=== PATIENT | female | born 2000 | race American Indian/Alaskan Native ===

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

== ENCOUNTER 2022-04-03 16:55 | Inpatient (IN) | payer MEDICAID, OTHER ==
[2022-04-03 20:21] LABS: Mucus,Urine FEW /HPF
[2022-04-03 20:28] LABS: Color,Urine Straw (Yellow)
[2022-04-03 20:29] LABS: Bilirubin,Urine Negative (Negative); Blood,Urine Negative (Negative); Protein,Urine <30 mg dL mg/dL (Negative); Urobilinogen,Urine < 2.0 mg/dL (<2.0)
[2022-04-03 20:50] LABS: Mean Corpuscular HGB Conc 27 % (30-34); Platelet Count 715 K/mm3 (140-440)
[2022-04-03 20:51] LABS: Hematocrit 22.4 % (30.3-42.9); Hemoglobin 6.1 gm/dl (10.1-14.3); Mean Corpuscular Volume 61 fl (79-97); Red Cell Distribution Width 35.2 % (13.2-15.2)
[2022-04-03 21:12] LABS: Alanine Aminotransferase 8 units/L (7-56); Albumin 4.8 g/dL (3.9-5); Blood Urea Nitrogen 9 mg/dL (7-17); Calcium 8.9 mg/dL (8.4-10.2); Hemolysis Index 4
[2022-04-03 21:13] LABS: BUN/Creatinine Ratio 18
[2022-04-03 21:57] LABS: Eosinophils % (Manual) 0 % (0.0-4.3); Total Cells Counted 100
[2022-04-03 21:58] LABS: Anisocytosis 3+; Hypochromasia 3+; Poikilocytosis 2+
[2022-04-03 21:59] LABS: Ovalocytes Few; Platelet Estimate Consistent w Auto; Tear Drop Cells 1+
[2022-04-04] MEDS ORDERED: SODIUM CHLORIDE 0.9% 500 ML 500 ML IV ONE (02:54)
--- NOTE | 2022-04-04 02:54 | XRay Report ---
CHEST 2 VIEWS INDICATION / CLINICAL INFORMATION: cp. COMPARISON: None available. FINDINGS: SUPPORT DEVICES: None. HEART / MEDIASTINUM: Heart size and mediastinal contour appear within normal limits. LUNGS / PLEURA: No significant pulmonary or pleural abnormality. No pneumothorax. BONES: No significant osseous abnormality. ADDITIONAL FINDINGS: No significant additional findings. IMPRESSION: 1. No active cardiopulmonary disease. Signer Name: Kd Mcclellan II, MD Signed: 04/04/2022 2:49 AM Workstation Name: [id number]
--- NOTE | 2022-04-04 03:09 | Emergency Department Report ---
ED General Adult HPI - General Chief complaint: Chest Pain Stated complaint: CHEST PAIN/SWOLLEN TONSILS Time Seen by Provider: 04/04/22 02:19 Source: patient Mode of arrival: Ambulatory Limitations: No Limitations - History of Present Illness Initial comments: 23-year-old obese F Micronesian female with past medical history of anemia since childhood of unknown etiology presents emergency department complaining of a possible exacerbation of anemia versus pharyngitis. Having some increased fatigue as of late in conjunction with occasional chest discomfort which spontaneously resolved over the last few days. Reports no chest pain palpitations -: Gradual Radiation: non-radiation Quality: dull Consistency: constant Improves with: none Worsens with: none Associated Symptoms: chest pain, malaise. denies: headaches, weakness Treatments Prior to Arrival: none - Related Data Previous Rx's Medication Instructions Recorded Last Taken Type Ferrous Sulfate [Feosol 325 MG tab] 325 mg PO BID #60 tablet 10/23/18 Unknown Rx Allergies Allergy/AdvReac Type Severity Reaction Status Date / Time No Known Allergies Allergy Unverified 10/22/18 19:45 ED Review of Systems ROS: Stated complaint: CHEST PAIN/SWOLLEN TONSILS Other details as noted in HPI Comment: All other systems reviewed and negative ED Past Medical Hx - Past Medical History Hx Hypertension: No Hx Heart Attack/AMI: No Hx Congestive Heart Failure: No Hx Deep Vein Thrombosis: No Hx Pulmonary Embolism: No Hx Headaches / Migraines: No Hx Seizures: No Hx Asthma: No Hx COPD: No Hx Tuberculosis: No Hx Dementia: No Hx HIV: No Additional medical history: Anemia, Heavy Menses, - Surgical History Hx Coronary Stent: No Hx Pacemaker: No Hx Internal Defibrillator: No - Social History Smoking Status: Never Smoker - Medications Home Medications: Home Medications Medication Instructions Recorded Confirmed Last Taken Type Ferrous Sulfate [Feosol 325 MG tab] 325 mg PO BID #60 tablet 10/23/18 Unknown R x ED Physical Exam - General Limitations: No Limitations General appearance: alert, in no apparent distress - Head Head exam: Present: atraumatic, normocephalic - Eye Eye exam: Present: normal appearance, PERRL, EOMI Pupils: Present: normal accommodation - ENT ENT exam: Present: normal exam, mucous membranes moist, TM's normal bilaterally, other (Hypertrophic tonsils however airways patent no exudate is present no lymphadenopathy is appreciated. No drooling normal voice) - Neck Neck exam: Present: normal inspection, full ROM - Respiratory Respiratory exam: Present: normal lung sounds bilaterally. Absent: respiratory distress, wheezes, rales, chest wall tenderness, decreased breath sounds - Cardiovascular Cardiovascular Exam: Present: regular rate, normal rhythm. Absent: systolic murmur, diastolic murmur, rubs, gallop - GI/Abdominal GI/Abdominal exam: Present: soft, normal bowel sounds - Extremities Exam Extremities exam: Present: normal inspection - Back Exam Back exam: Present: normal inspection - Neurological Exam Neurological exam: Present: alert, oriented X3 - Psychiatric Psychiatric exam: Present: normal affect, normal mood - Skin Skin exam: Present: warm, dry, intact, normal color. Absent: rash ED Course Vital Signs 04/03/22 19:07 Temperature 98.1 F Pulse Rate 83 Respiratory 18 Rate Blood Pressure 136/75 O2 Sat by Pulse 100 Oximetry ED Medical Decision Making - Lab Data Result diagrams: 04/03/22 20:23 04/03/22 20:23 - EKG Data When compared to previous EKG there are: no significant change - Radiology Data Radiology results: report reviewed [address] [address] XRay Report Signed Patient: VALENTINA BRICEÑO MR#: [id number] : 2000 Acct:[id number] Age/Sex: 21 / F ADM Date: 04/03/22 Loc: ED Attending Dr: Ordering Physician: MICHELLE BLAKE Date of Service: 04/04/22 Procedure(s): XR chest routine 2V Accession Number(s): [id number] cc: MICHELLE BLAKE Fluoro Time In Minutes: CHEST 2 VIEWS INDICATION / CLINICAL INFORMATION: cp. COMPARISON: None available. FINDINGS: SUPPORT DEVICES: None. HEART / MEDIASTINUM: Heart size and mediastinal contour appear within normal limits. LUNGS / PLEURA: No significant pulmonary or pleural abnormality. No pneumothorax. BONES: No significant osseous abnormality. ADDITIONAL FINDINGS: No significant additional findings. IMPRESSION: 1. No active cardiopulmonary disease. Signer Name: Milena Mcclellan II, MD Signed: 04/04/2022 2:49 AM Workstation Name: [id number] Transcribed By: BIPIN Dictated By: MILENA MCCLELLAN II, MD Electronically Authenticated By: MILENA MCCLELLAN II, MD Signed Date/Time: 04/04/22248 DD/ 8 TD/TT: - Medical Decision Making 21-year-old obese female with a history of anemia presents emerged department complaining of episodes of fatigue and various episodes of chest discomfort after fluctuates of the nature. Upon investigation and physical examination did reveal hemoglobin of 6.1 in conjunction with the platelets of 715 for reasons unknown. Case was discussed with the hospitalist and attending both agreed and need to admit and type cross and transfuse. I will replace the type cross and transfuse 2 units of packed red blood cells after discussion with the hospitalist. This patient presents with chest pain that is very unlikely angina or acute coronary syndrome. The emergency department evaluation has not identified any cause for suspicion that this chest pain has a cardiac etiology. Based on their history, EKG (which showed no evidence of ischemia or infarction) and imaging, in addition to the patient's physical exam, I see no evidence at this time for a malignant etiology for the patient's chest pain. There is no acute evidence for pulmonary embolus, acute myocardial infarction, pneumothorax, Boerhaeve syndrome, cardiac tamponade, thoracic artery dissection, or any other emergent cardiac, pulmonary or aortic pathology. Given the low pre-test probability for cardiac etiology of chest pain and the absence of any sign of ischemia or infarction, discharge for outpatient follow-up and further evaluation is reasonable. I have explained to the patient that even though a cardiac problem is very unlikely, follow-up and further testing is required to reduce further the already small uncertainty that exists. Other life-threatening diagnoses have been considered. The patient understands the need to return immediately if their symptoms worsen or they develop any new symptoms, and not to engage in any significant exertional activity until follow-up is obtained. Critical care attestation.: If time is entered above; I have spent that time in minutes in the direct care of this critically ill patient, excluding procedure time. ED Disposition Clinical Impression: Anemia, Chest pain, Sore throat Disposition: ADMITTED INPATIENT Is pt being admited?: Yes Does the pt Need Aspirin: No Condition: Stable Instructions: Nonspecific Chest Pain, Adult
[2022-04-04] MEDS ORDERED: MORPHINE 4 MG/1 ML INJ IV PRN (05:10)
[2022-04-04] MEDS ORDERED: MORPHINE 2 MG/1 ML INJ IV PRN (05:10)
[2022-04-04] MEDS ORDERED: ACETAMINOPHEN 325 MG TAB PO PRN (05:10)
[2022-04-04] MEDS ORDERED: ONDANSETRON 4 MG/2 ML INJ IV PRN (05:10)
[2022-04-04] MEDS ORDERED: ALBUTEROL 2.5 MG/3 ML NEBU IH PRN (05:10)
--- NOTE | 2022-04-04 05:16 | History and Physical Report ---
History of Present Illness Date of examination: 04/04/22 Date of admission: 04/04/22 Chief complaint: Anemia Chest pain History of present illness: 23-year-old obese F Indian female with past medical history of anemia since childhood of unknown etiology presents emergency department complaining of a possible exacerbation of anemia versus pharyngitis. Having some increased fatigue as of late in conjunction with occasional chest discomfort which spontaneously resolved over the last few days. Reports no chest pain palpitations In the emergency room patient is found to have a hemoglobin of 6.1 and hematocrit 22.4 so we are going to admit the patient we are going to give 2 unit of packed red blood cells Past History Past Medical History: anemia, other (Heavy menses) Past Surgical History: No surgical history Social history: no significant social history Family history: hypertension Medications and Allergies Allergies Allergy/AdvReac Type Severity Reaction Status Date / Time No Known Allergies Allergy Unverified 10/22/18 19:45 Home Medications Medication Instructions Recorded Confirmed Last Taken Type Ferrous Sulfate [Feosol 325 MG tab] 325 mg PO BID #60 tablet 10/23/18 Unknown Rx Active Meds: Active Medications Acetaminophen (Acetaminophen 325 Mg Tab) 650 mg PO Q4H PRN PRN Reason: Pain MILD(1-3)/Fever >100.5/COOPER Albuterol (Albuterol 2.5 Mg/3 Ml Nebu) 2.5 mg IH Q3HRT PRN PRN Reason: Shortness Of Breath Albuterol/Ipratropium (Ipratropium/Albuterol Sulfate 3 Ml Ampul.Neb) 1 ampul IH Q6HRT ARUN Ondansetron HCl (Ondansetron 4 Mg/2 Ml Inj) 4 mg IV Q8H PRN PRN Reason: Nausea And Vomiting Sodium Chloride (Sodium Chloride 0.9% 10 Ml Flush Syringe) 10 ml IV BID ARUN Sodium Chloride (Sodium Chloride 0.9% 10 Ml Flush Syringe) 10 ml IV PRN PRN PRN Reason: LINE FLUSH Review of Systems All systems: negative Constitutional: fatigue, weakness, malaise, other (Chest pain, swollen tonsils) Exam - Constitutional Vitals: Temp Pulse Resp BP Pulse Ox 98.2 F 75 16 109/41 100 04/04/22 04:56 04/04/22 04:56 04/04/22 04:56 04/04/22 04:56 04/04/22 04:56 General appearance: Present: no acute distress, well-nourished - EENT Eyes: Present: PERRL ENT: hearing intact, clear oral mucosa - Neck Neck: Present: supple, normal ROM - Respiratory Respiratory effort: normal Respiratory: bilateral: CTA - Cardiovascular Heart Sounds: Present: S1 & S2. Absent: rub, click - Extremities Extremities: pulses symmetrical, No edema Peripheral Pulses: within normal limits - Abdominal General gastrointestinal: Present: soft, non-tender, non-distended, normal bowel sounds Female genitourinary: Present: normal - Integumentary Integumentary: Present: clear, warm, dry - Musculoskeletal Musculoskeletal: gait normal, strength equal bilaterally - Psychiatric Psychiatric: appropriate mood/affect, intact judgment & insight - Neurologic Neurologic: CNII-XII intact, moves all extremities Results - Labs CBC & Chem 7: 04/03/22 20:23 04/03/22 20:23 Labs: Laboratory Last Values WBC 6.5 K/mm3 (4.5-11.0) 04/03/22 20: RBC 3.70 M/mm3 (3.65-5.03) 04/03/22 20:23 Hgb 6.1 gm/dl (10.1-14.3) L 04/03/22 20:23 Hct 22.4 % (30.3-42.9) L 04/03/22 20:23 MCV 61 fl (79-97) L 04/03/22 20:23 MCH 17 pg (28-32) L 04/03/22 20:23 MCHC 27 % (30-34) L 04/03/22 20:23 RDW 35.2 % (13.2-15.2) H 04/03/22 20:23 Plt Count 715 K/mm3 (140-440) H 04/03/22 20:23 Add Manual Diff Complete 04/03/22 20:23 Total Counted 100 04/03/22 20:23 Seg Neuts % (Manual) 65.0 % (40.0-70.0) 04/03/22 20:23 Band Neutrophils % 0 % 04/03/22 20:23 Lymphocytes % (Manual) 31.0 % (13.4-35.0) 04/03/22 20:23 Reactive Lymphs % (Man) 0 % 04/03/22 20:23 Monocytes % (Manual) 1.0 % (0.0-7.3) 04/03/22 20:23 Eosinophils % (Manual) 0 % (0.0-4.3) 04/03/22 20:23 Basophils % (Manual) 3.0 % (0.0-1.8) H 04/03/22 20:23 Metamyelocytes % 0 % 04/03/22 20:23 Myelocytes % 0 % 04/03/22 20:23 Promyelocytes % 0 % 04/03/22 20:23 Blast Cells % 0 % 04/03/22 20:23 Nucleated RBC % 1.0 % (0.0-0.9) H 04/03/22 20:23 Seg Neutrophils # Man 4.2 K/mm3 (1.8-7.7) 04/03/22 20:23 Band Neutrophils # 0.0 K/mm3 04/03/22 20:23 Lymphocytes # (Manual) 2.0 K/mm3 (1.2-5.4) 04/03/22 20:23 Abs React Lymphs (Man) 0.0 K/mm3 04/03/22 20:23 Monocytes # (Manual) 0.1 K/mm3 (0.0-0.8) 04/03/22 20:23 Eosinophils # (Manual) 0.0 K/mm3 (0.0-0.4) 04/03/22 20:23 Basophils # (Manual) 0.2 K/mm3 (0.0-0.1) H 04/03/22 20:23 Metamyelocytes # 0.0 K/mm3 04/03/22 20:23 Myelocytes # 0.0 K/mm3 04/03/22 20:23 Promyelocytes # 0.0 K/mm3 04/03/22 20:23 Blast Cells # 0.0 K/mm3 04/03/22 20:23 WBC Morphology Not Reportable 04/03/22 20:23 Hypersegmented Neuts Not Reportable 04/03/22 20:23 Hyposegmented Neuts Not Reportable 04/03/22 20:23 Hypogranular Neuts Not Reportable 04/03/22 20:23 Smudge Cells Not Reportable 04/03/22 20:23 Toxic Granulation Not Reportable 04/03/22 20:23 Toxic Vacuolation Not Reportable 04/03/22 20:23 Dohle Bodies Not Reportable 04/03/22 20:23 Pelger-Huet Anomaly Not Reportable 04/03/22 20:23 Kanu Rods Not Reportable 04/03/22 20:23 Platelet Estimate Consistent w auto 04/03/22 20:23 Clumped Platelets Not Reportable 04/03/22 20:23 Plt Clumps, EDTA Not Reportable 04/03/22 20:23 Large Platelets Not Reportable 04/03/22 20:23 Giant Platelets Not Reportable 04/03/22 20:23 Platelet Satelliting Not Reportable 04/03/22 20:23 Plt Morphology Comment Not Reportable 04/03/22 20:23 RBC Morphology Not Reportable 04/03/22 20:23 Dimorphic RBCs Not Reportable 04/03/22 20:23 Polychromasia Not Reportable 04/03/22 20:23 Hypochromasia 3+ 04/03/22 20:23 Poikilocytosis 2+ 04/03/22 20:23 Anisocytosis 3+ 04/03/22 20:23 Microcytosis 3+ 04/03/22 20:23 Macrocytosis Not Reportable 04/03/22 20:23 Spherocytes Not Reportable 04/03/22 20:23 Pappenheimer Bodies Not Reportable 04/03/22 20:23 Sickle Cells Not Reportable 04/03/22 20:23 Target Cells Not Reportable 04/03/22 20:23 Tear Drop Cells 1+ 04/03/22 20:23 Ovalocytes Few 04/03/22 20:23 Helmet Cells Not Reportable 04/03/22 20:23 Hammer-[place] Bodies Not Reportable 04/03/22 20:23 [place] Rings Not Reportable 04/03/22 20:23 [place] Cells Not Reportable 04/03/22 20:23 Bite Cells Not Reportable 04/03/22 20:23 Crenated Cell Not Reportable 04/03/22 20:23 Elliptocytes Few 04/03/22 20:23 Acanthocytes (Spur) Not Reportable 04/03/22 20:23 Rouleaux Not Reportable 04/03/22 20:23 Hemoglobin C Crystals Not Reportable 04/03/22 20:23 Schistocytes Not Reportable 04/03/22 20:23 Malaria parasites Not Reportable 04/03/22 20:23 Julio Bodies Not Reportable 04/03/22 20:23 Hem Pathologist Commnt No 04/03/22 20:23 Sodium 137 mmol/L (137-145) 04/03/22 20:23 Potassium 4.0 mmol/L (3.6-5.0) 04/03/22 20:23 Chloride 105.4 mmol/L (98-107) 04/03/22 20:23 Carbon Dioxide 23 mmol/L (22-30) 04/03/22 20:23 Anion Gap 13 mmol/L 04/03/22 20:23 BUN 9 mg/dL (7-17) 04/03/22 20:23 Creatinine 0.5 mg/dL (0.6-1.2) L 04/03/22 20:23 Estimated GFR > 60 ml/min 04/03/22 20:23 BUN/Creatinine Ratio 18 % 04/03/22 20:23 Glucose 90 mg/dL (65-100) 04/03/22 20:23 Calcium 8.9 mg/dL (8.4-10.2) 04/03/22 20:23 Total Bilirubin 0.50 mg/dL (0.1-1.2) 04/03/22 20:23 AST 18 units/L (5-40) 04/03/22 20:23 ALT 8 units/L (7-56) 04/03/22 20:23 Alkaline Phosphatase 53 units/L (35-129) 04/03/22 20:23 Total Protein 7.4 g/dL (6.3-8.2) 04/03/22 20:23 Albumin 4.8 g/dL (3.9-5) 04/03/22 20:23 Albumin/Globulin Ratio 1.8 % 04/03/22 20:23 Urine Color Straw (Yellow) 04/03/22 Unknown Urine Turbidity Clear (Clear) 04/03/22 Unknown Urine pH 5.0 (5.0-7.0) 04/03/22 Unknown Ur Specific [place] 1.015 (1.003-1.030) 04/03/22 Unknown Urine Protein <30 mg dl mg/dL (Negative) 04/03/22 Unknown Urine Glucose (UA) Negative mg/dL (Negative) 04/03/22 Unknown Urine Ketones Negative mg/dL (Negative) 04/03/22 Unknown Urine Blood Negative (Negative) 04/03/22 Unknown Urine Nitrite Negative (Negative) 04/03/22 Unknown Ur Reducing Substances Not Reportable 04/03/22 Unknown Urine Bilirubin Negative (Negative) 04/03/22 Unknown Urine Ictotest Not Reportable 04/03/22 Unknown Urine Urobilinogen < 2.0 mg/dL (<2.0) 04/03/22 Unknown Ur Leukocyte Esterase Trace (Negative) 04/03/22 Unknown Urine WBC (Auto) 13.0 /HPF (0.0-6.0) H 04/03/22 Unknown Urine RBC (Auto) 3.0 /HPF (0.0-6.0) 04/03/22 Unknown U Epithel Cells (Auto) 7.0 /HPF (0-13.0) 04/03/22 Unknown Urine Mucus Few /HPF 04/03/22 Unknown Blood Type O POSITIVE 04/04/22 03:35 Antibody Screen Negative 04/04/22 03:35 Crossmatch See Detail 04/04/22 03:35 - Imaging and Cardiology Chest x-ray: report reviewed Assessment and Plan VTE prophylaxis?: Mechanical Plan of care discussed with patient/family: Yes - Patient Problems (1) Symptomatic anemia Onset Date: 10/23/18 Current Visit: No Status: Resolved Plan to address problem: Admit the patient to the medical floor. Patient is getting 2 unit of packed red blood cell. Anemia most likely secondary to heavy menses. Recheck CBC in the morning. Outpatient follow-up with [facility] (2) Chest pain Current Visit: Yes Status: Acute Plan to address problem: Patient denied any chest pain at this time. EKG is normal. We will monitor the patient closely (3) Sore throat Current Visit: Yes Status: Acute Plan to address problem: Rocephin 2 g IV daily Listerine mouthwash twice a day. Oral hygiene (4) DVT prophylaxis Current Visit: Yes Status: Acute Plan to address problem: SCD for DVT prophylaxis. Pepcid 20 mg IV every 12 hours for GI prophylaxis. Patient is a full code
[2022-04-04] MEDS: cefTRIAXone/NS 2 GM/100 ML 2 GM/100 ML BAG IV SCH (06:02)
--- NOTE | 2022-04-04 06:54 | Progress Note ---
Hospitalist Physical - Constitutional Vitals: Temp Pulse Resp BP Pulse Ox 98.3 F 78 15 113/55 100 04/04/22 05:41 04/04/22 06:10 04/04/22 06:10 04/04/22 06:10 04/04/22 06:00 General appearance: Present: no acute distress, well-nourished Results - Labs CBC & Chem 7: 04/03/22 20:23 04/03/22 20:23 Labs: Laboratory Last Values WBC 6.5 K/mm3 (4.5-11.0) 04/03/22 20:23 RBC 3.70 M/mm3 (3.65-5.03) 04/03/22 20:23 Hgb 6.1 gm/dl (10.1-14.3) L 04/03/22 20:23 Hct 22.4 % (30.3-42.9) L 04/03/22 20:23 MCV 61 fl (79-97) L 04/03/22 20:23 MCH 17 pg (28-32) L 04/03/22 20:23 MCHC 27 % (30-34) L 04/03/22 20:23 RDW 35.2 % (13.2-15.2) H 04/03/22 20:23 Plt Count 715 K/mm3 (140-440) H 04/03/22 20:23 Add Manual Diff Complete 04/03/22 20:23 Total Counted 100 04/03/22 20:23 Seg Neuts % (Manual) 65.0 % (40.0-70.0) 04/03/22 20:23 Band Neutrophils % 0 % 04/03/22 20:23 Lymphocytes % (Manual) 31.0 % (13.4-35.0) 04/03/22 20:23 Reactive Lymphs % (Man) 0 % 04/03/22 20:23 Monocytes % (Manual) 1.0 % (0.0-7.3) 04/03/22 20: Eosinophils % (Manual) 0 % (0.0-4.3) 04/03/22 20:23 Basophils % (Manual) 3.0 % (0.0-1.8) H 04/03/22 20:23 Metamyelocytes % 0 % 04/03/22 20:23 Myelocytes % 0 % 04/03/22 20:23 Promyelocytes % 0 % 04/03/22 20:23 Blast Cells % 0 % 04/03/22 20:23 Nucleated RBC % 1.0 % (0.0-0.9) H 04/03/22 20:23 Seg Neutrophils # Man 4.2 K/mm3 (1.8-7.7) 04/03/22 20:23 Band Neutrophils # 0.0 K/mm3 04/03/22 20:23 Lymphocytes # (Manual) 2.0 K/mm3 (1.2-5.4) 04/03/22 20:23 Abs React Lymphs (Man) 0.0 K/mm3 04/03/22 20:23 Monocytes # (Manual) 0.1 K/mm3 (0.0-0.8) 04/03/22 20:23 Eosinophils # (Manual) 0.0 K/mm3 (0.0-0.4) 04/03/22 20:23 Basophils # (Manual) 0.2 K/mm3 (0.0-0.1) H 04/03/22 20:23 Metamyelocytes # 0.0 K/mm3 04/03/22 20:23 Myelocytes # 0.0 K/mm3 04/03/22 20:23 Promyelocytes # 0.0 K/mm3 04/03/22 20:23 Blast Cells # 0.0 K/mm3 04/03/22 20:23 WBC Morphology Not Reportable 04/03/22 20:23 Hypersegmented Neuts Not Reportable 04/03/22 20:23 Hyposegmented Neuts Not Reportable 04/03/22 20:23 Hypogranular Neuts Not Reportable 04/03/22 20:23 Smudge Cells Not Reportable 04/03/22 20:23 Toxic Granulation Not Reportable 04/03/22 20:23 Toxic Vacuolation Not Reportable 04/03/22 20:23 Dohle Bodies Not Reportable 04/03/22 20:23 Pelger-Huet Anomaly Not Reportable 04/03/22 20:23 Kanu Rods Not Reportable 04/03/22 20:23 Platelet Estimate Consistent w auto 04/03/22 20:23 Clumped Platelets Not Reportable 04/03/22 20:23 Plt Clumps, EDTA Not Reportable 04/03/22 20:23 Large Platelets Not Reportable 04/03/22 20:23 Giant Platelets Not Reportable 04/03/22 20:23 Platelet Satelliting Not Reportable 04/03/22 20:23 Plt Morphology Comment Not Reportable 04/03/22 20:23 RBC Morphology Not Reportable 04/03/22 20:23 Dimorphic RBCs Not Reportable 04/03/22 20:23 Polychromasia Not Reportable 04/03/22 20:23 Hypochromasia 3+ 04/03/22 20:23 Poikilocytosis 2+ 04/03/22 20:23 Anisocytosis 3+ 04/03/22 20:23 Microcytosis 3+ 04/03/22 20:23 Macrocytosis Not Reportable 04/03/22 20:23 Spherocytes Not Reportable 04/03/22 20:23 Pappenheimer Bodies Not Reportable 04/03/22 20:23 Sickle Cells Not Reportable 04/03/22 20:23 Target Cells Not Reportable 04/03/22 20:23 Tear Drop Cells 1+ 04/03/22 20:23 Ovalocytes Few 04/03/22 20:23 Helmet Cells Not Reportable 04/03/22 20:23 [place] Bodies Not Reportable 04/03/22 20:23 [place] Rings Not Reportable 04/03/22 20:23 [place] Cells Not Reportable 04/03/22 20:23 Bite Cells Not Reportable 04/03/22 20:23 Crenated Cell Not Reportable 04/03/22 20:23 Elliptocytes Few 04/03/22 20:23 Acanthocytes (Spur) Not Reportable 04/03/22 20:23 Rouleaux Not Reportable 04/03/22 20:23 Hemoglobin C Crystals Not Reportable 04/03/22 20:23 Schistocytes Not Reportable 04/03/22 20:23 Malaria parasites Not Reportable 04/03/22 20:23 Julio Bodies Not Reportable 04/03/22 20:23 Hem Pathologist Commnt No 04/03/22 20:23 Sodium 137 mmol/L (137-145) 04/03/22 20:23 Potassium 4.0 mmol/L (3.6-5.0) 04/03/22 20:23 Chloride 105.4 mmol/L (98-107) 04/03/22 20:23 Carbon Dioxide 23 mmol/L (22-30) 04/03/22 20:23 Anion Gap 13 mmol/L 04/03/22 20:23 BUN 9 mg/dL (7-17) 04/03/22 20:23 Creatinine 0.5 mg/dL (0.6-1.2) L 04/03/22 20:23 Estimated GFR > 60 ml/min 04/03/22 20:23 BUN/Creatinine Ratio 18 % 04/03/22 20:23 Glucose 90 mg/dL (65-100) 04/03/22 20:23 Calcium 8.9 mg/dL (8.4-10.2) 04/03/22 20:23 Total Bilirubin 0.50 mg/dL (0.1-1.2) 04/03/22 20:23 AST 18 units/L (5-40) 04/03/22 20:23 ALT 8 units/L (7-56) 04/03/22 20:23 Alkaline Phosphatase 53 units/L (35-129) 04/03/22 20:23 Total Protein 7.4 g/dL (6.3-8.2) 04/03/22 20:23 Albumin 4.8 g/dL (3.9-5) 04/03/22 20:23 Albumin/Globulin Ratio 1.8 % 04/03/22 20:23 Urine Color Straw (Yellow) 04/03/22 Unknown Urine Turbidity Clear (Clear) 04/03/22 Unknown Urine pH 5.0 (5.0-7.0) 04/03/22 Unknown Ur Specific [place] 1.015 (1.003-1.030) 04/03/22 Unknown Urine Protein <30 mg dl mg/dL (Negative) 04/03/22 Unknown Urine Glucose (UA) Negative mg/dL (Negative) 04/03/22 Unknown Urine Ketones Negative mg/dL (Negative) 04/03/22 Unknown Urine Blood Negative (Negative) 04/03/22 Unknown Urine Nitrite Negative (Negative) 04/03/22 Unknown Ur Reducing Substances Not Reportable 04/03/22 Unknown Urine Bilirubin Negative (Negative) 04/03/22 Unknown Urine Ictotest Not Reportable 04/03/22 Unknown Urine Urobilinogen < 2.0 mg/dL (<2.0) 04/03/22 Unknown Ur Leukocyte Esterase Trace (Negative) 04/03/22 Unknown Urine WBC (Auto) 13.0 /HPF (0.0-6.0) H 04/03/22 Unknown Urine RBC (Auto) 3.0 /HPF (0.0-6.0) 04/03/22 Unknown U Epithel Cells (Auto) 7.0 /HPF (0-13.0) 04/03/22 Unknown Urine Mucus Few /HPF 04/03/22 Unknown Blood Type O POSITIVE 04/04/22 03:35 Antibody Screen Negative 04/04/22 03:35 Crossmatch See Detail 04/04/22 03:35 Active Medications - Current Medications Current Medications: Generic Name Dose Route Start Last Admin Trade Name Freq PRN Reason Stop Dose Admin Acetaminophen 650 mg 04/04/22 05:10 Acetaminophen 325 Mg Tab PO Q4H PRN Pain MILD(1-3)/Fever >100.5/COOPER Albuterol 2.5 mg 04/04/22 05:10 Albuterol 2.5 Mg/3 Ml Nebu IH Q3HRT PRN Shortness Of Breath Famotidine 20 mg 04/04/22 10:00 Famotidine 20 Mg/2 Ml Inj IV BID ARUN Ceftriaxone Sodium 2 gm in 100 mls @ 200 mls/hr 04/04/22 06:00 04/04/22 06:02 Rocephin/Ns 2 Gm/100 Ml IV 200 mls/hr Q24H ARUN Administration Protocol Morphine Sulfate 2 mg 04/04/22 05:10 Morphine 2 Mg/1 Ml Inj IV Q4H PRN Pain, Moderate (4-6) Morphine Sulfate 4 mg 04/04/22 05:10 Morphine 4 Mg/1 Ml Inj IV Q4H PRN Pain , Severe (7-10) Ondansetron HCl 4 mg 04/04/22 05:10 Ondansetron 4 Mg/2 Ml Inj IV Q8H PRN Nausea And Vomiting Sodium Chloride 10 ml 04/04/22 10:00 Sodium Chloride 0.9% 10 Ml Flush Syringe IV BID ARUN Sodium Chloride 10 ml 04/04/22 05:10 Sodium Chloride 0.9% 10 Ml Flush Syringe IV PRN PRN LINE FLUSH
--- NOTE | 2022-04-04 06:58 | Discharge Summary ---
Providers - Providers Date of Admission: 04/04/22 05:10 Date of discharge: 04/04/22 Attending physician: LEOBARDO PARKS MD Primary care physician: NADEEN DALTON MD Hospitalization Reason for admission: fatigue Condition: Stable Hospital course: History of present illness: 23-year-old obese F Wallisian female with past medical history of anemia since childhood of unknown etiology presents emergency department complaining of a possible exacerbation of anemia versus pharyngitis. Having some increased fatigue as of late in conjunction with occasional chest discomfort which spontaneously resolved over the last few days. Reports no chest pain palpitations In the emergency room patient is found to have a hemoglobin of 6.1 and hematocrit 22.4 so we are going to admit the patient we are going to give 2 unit of packed red blood cells Hospital Course: Admitted for fatigue due to symptomatic anemia secondary to menorrhagia from mentrual cycles. chornically anemic. Patient given 2 units prbc. Follow up H/H pending. 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 Rx for augmentin will be provided on d/c for pharyngitis and iron supplementation for anemia. Assessment and Plan: #Symptomatic Anemia #Microcytic Anemia - chronic anemia, heavy menses - Hgb: 6.1 - VSS - 2 unit rbc ordered - follow up recheck H/H -d/c home with iron supplementation #Chest pain - no acute complaints at the time of discharge. #Acute pharyngitis - currently on rocephin, change to augmentin on d/c. #Morbid Obesity - BMI 39.6 - Counseled patient on the importance of weight loss, incorporating exercise, and dietary changes (lean meats, fresh fruits and vegetables, and water intake). Patient expresses understanding. - Time: +15 min #Advance care planning Disease education conducted, care plan discussed, diagnoses discussed, prognosis discussed, patient is full code, patient acknowledges understanding and agree with care plan, +30 minutes. Disposition: HOME / SELF CARE / HOMELESS Final Discharge Diagnosis (Prints w/discharge instructions): symptomatic anemia, menorrhagia, acute pharyngitis Time spent for discharge: 25 Core Measure Documentation - Palliative Care Palliative Care/ Comfort Measures: Not Applicable - Core Measures Any of the following diagnoses?: none Exam - Physical Exam Narrative exam: Physical Exam: VITAL SIGNS: Reviewed. GENERAL: The patient appears normally developed, Vital signs as documented. Obese HEAD: No signs of head trauma. EYES: Pupils are equal. Extraocular motions intact. EARS: Hearing grossly intact. MOUTH: Oropharynx is normal. NECK: No adenopathy, no JVD. CHEST: Chest with clear breath sounds bilaterally. No wheezes, rales, or rhonchi. CARDIAC: Regular rate and rhythm. S1 and S2, without murmurs, gallops, or rubs. VASCULAR: No Edema. Peripheral pulses normal and equal in all extremities. ABDOMEN: Soft, non tender and non distended. No rebound or guarding, and no masses palpated. Bowel Sounds normal. MUSCULOSKELETAL: Good range of motion of all major joints. Extremities without clubbing, cyanosis or edema. NEUROLOGIC EXAM: Alert and oriented x 4. no focal sensory or strength deficits. PSYCHIATRIC: Mood normal. SKIN: detail exam as documented in skin assessment - Constitutional Vitals: Temp Pulse Resp BP Pulse Ox 98.3 F 78 15 113/55 100 04/04/22 06:11 04/04/22 06:11 04/04/22 06:11 04/04/22 06:11 04/04/22 06:11 Plan Follow up with: BAM CALVERT MD [Staff Physician] - 3-5 Days Prescriptions: Amoxicillin/K Clav Tab [Augmentin 875 mg] 1 tab PO Q12HR 5 Days #10 tab Ferrous Sulfate [Feosol 325 MG tab] 325 mg PO BID 30 Days #60 tablet
[2022-04-04] MEDS ORDERED: IPRATROPIUM/ALBUTEROL SULFATE 3 ML AMPUL.NEB IH SCH (08:00)
[2022-04-04] MEDS ORDERED: FAMOTIDINE 20 MG/2 ML INJ IV SCH (10:00)
[2022-04-04] MEDS: FAMOTIDINE 20 MG TAB PO SCH ×2 (10:49→22:07)
--- NOTE | 2022-04-04 11:19 | Electrocardiograph Report ---
[facility], [place] Test Date: 2022-04-04 Test Time: 02:51:04 Pat Name: VALENTINA BRICEÑO Department: Room: A383 1 Gender: F Data Entry Technician: NURSE : 2000 Requested By: DM ROSS Order Number: [id number] Reading MD: Glynn Trevizo Measurements Intervals [place] Rate: 69 P: 27 IL: 138 QRS: 46 QRSD: 77 T: 60 QT: 406 QTc: 435 Interpretive Statements Sinus rhythm Low voltage, precordial leads No previous ECG available for comparison Electronically Signed On 04-04-2022 11:18:52 EDT by Glynn Trevizo
--- NOTE | 2022-04-04 12:52 | Event Note ---
Date: 04/04/22 Paged in afternoon about patient having suicidal ideation. This had not been brought up on my AM encounter with the patient nor in any of the other provider's notes. I spoke to patient at bedside. She states that she has been having suicidal thoughts since thursday with a plan to "slit my throat", she stated. I discussed mental health evaluation and the need for this. Discharge cancelled, 1013 initiated. Mental health consultation placed.
--- NOTE | 2022-04-04 14:20 | Consultation ---
History of Present Illness - Reason for Consult Consult date: 04/04/22 Reason for consult: SI - History of Present Psychiatric Illness The patient was seen today. She is quiet and withdrawn. She endorses being depressed and suicidal. The patient is tearful. She says "I just had a baby recently and I just had a breakup." She says her boyfriend is with another woman. The patient says she had a plan Thursday to "cut her throat open." She denies a past psych history or being on any psych meds. Will recommend acute psychiatric inpatient treatment to stabilize the patient on meds. PAST PSYCHIATRIC HISTORY: Diagnoses: Denies Suicide attempts or Self-harm behavior: Denies Prior psychiatric hospitalizations:: Denies Substance Abuse history: Denies Previous psychiatric medications tried: denies Outpatient treatment: denies PAST MEDICAL HISTORY: Denies Family Psychiatric History None reported or documented SOCIAL HISTORY Marital Status: Single Living Arrangements: with family Employment Status: Employed Access to guns/weapons: Denies Education: high school History of Abuse: Denies Legal History: Denies REVIEW OF SYSTEMS Constitutional: Negative for weight loss ENT: Negative for stridor Respiratory: Negative for cough or hemoptysis All other systems reviewed and are negative MENTAL STATUS General Appearance and Behavior: age appropriate, calm, cooperative, withdrawn, fair eye contact, tearful Psychomotor Behavior: within normal limits Mood: depressed Affect and affective range: congruent with stated mood, tearful Thought Process: goal directed Thought Content: optimistic Speech: Normal volume and Regular rate and rhythm Suicidal Ideation: Yes Homicidal Ideation: Denies HI Hallucinations: Denies Impulse Control: Limited Insight and Judgment: Limited Memory: Limited Attention: attentive Orientation: alert/oriented Diagnoses: Major Depressive Disorder Treatment Plan 1013 Seroquel 25mg po qhs Appreciate and agree with Zoloft 25mg po daily Sitter: Defer to primary Medical: per primary Disposition: recommend acute psychiatric inpatient treatment Will follow. Thanks Case staffed with Dr. Anaya Medications and Allergies Allergies Allergy/AdvReac Type Severity Reaction Status Date / Time No Known Allergies Allergy Unverified 10/22/18 19:45 Home Medications Medication Instructions Recorded Confirmed Last Taken Type Amoxicillin/K Clav Tab [Augmentin 1 tab PO Q12HR 5 Days #10 tab 04/04/22 Unknown Rx 875 mg] Ferrous Sulfate [Feosol 325 MG tab] 325 mg PO BID 30 Days #60 tablet 04/04/22 Unknown Rx Active Meds: Active Medications Acetaminophen (Acetaminophen 325 Mg Tab) 650 mg PO Q4H PRN PRN Reason: Pain MILD(1-3)/Fever >100.5/COOPER Albuterol (Albuterol 2.5 Mg/3 Ml Nebu) 2.5 mg IH Q3HRT PRN PRN Reason: Shortness Of Breath Famotidine (Famotidine 20 Mg Tab) 20 mg PO BID [facility] Ceftriaxone Sodium (Rocephin/Ns 2 Gm/100 Ml) 2 gm in 100 mls @ 200 mls/hr IV Q24H ARUN; Protocol Last Admin: 04/04/22 06:02 Dose: 200 mls/hr Morphine Sulfate (Morphine 2 Mg/1 Ml Inj) 2 mg IV Q4H PRN PRN Reason: Pain, Moderate (4-6) Morphine Sulfate (Morphine 4 Mg/1 Ml Inj) 4 mg IV Q4H PRN PRN Reason: Pain , Severe (7-10) Ondansetron HCl (Ondansetron 4 Mg/2 Ml Inj) 4 mg IV Q8H PRN PRN Reason: Nausea And Vomiting Sertraline HCl (Sertraline 25 Mg Tab) 25 mg PO QDAY ARUN Sodium Chloride (Sodium Chloride 0.9% 10 Ml Flush Syringe) 10 ml IV BID ARUN Sodium Chloride (Sodium Chloride 0.9% 10 Ml Flush Syringe) 10 ml IV PRN PRN PRN Reason: LINE FLUSH Mental Status Exam - Vital signs Last Vital Signs Temp 98.6 F 04/04/22 12:04 Pulse 80 04/04/22 12:04 Resp 16 04/04/22 12:04 BP 116/51 04/04/22 12:04 Pulse Ox 99 04/04/22 12:04 Results Result Diagrams: 04/03/22 20:23 04/03/22 20:23 Abnormal lab results 04/03/22 04/03/22 04/03/22 Range/Units 20:23 20:23 Unknown Hgb 6.1 L (10.1-14.3) gm/dl Hct 22.4 L (30.3-42.9) % MCV 61 L (79-97) fl MCH 17 L (28-32) pg MCHC 27 L (30-34) % RDW 35.2 H (13.2-15.2) % Plt Count 715 H (140-440) K/mm3 Basophils % (Manual) 3.0 H (0.0-1.8) % Nucleated RBC % 1.0 H (0.0-0.9) % Basophils # (Manual) 0.2 H (0.0-0.1) K/mm3 Creatinine 0.5 L (0.6-1.2) mg/dL Urine WBC (Auto) 13.0 H (0.0-6.0) /HPF Crossmatch 04/04/22 Range/Units 03:35 Hgb (10.1-14.3) gm/dl Hct (30.3-42.9) % MCV (79-97) fl MCH (28-32) pg MCHC (30-34) % RDW (13.2-15.2) % Plt Count (140-440) K/mm3 Basophils % (Manual) (0.0-1.8) % Nucleated RBC % (0.0-0.9) % Basophils # (Manual) (0.0-0.1) K/mm3 Creatinine (0.6-1.2) mg/dL Urine WBC (Auto) (0.0-6.0) /HPF Crossmatch See Detail All other labs normal.
[2022-04-04] MEDS: SERTRALINE 25 MG TAB PO SCH (14:49)
[2022-04-04 15:19] LABS: Hematocrit 32.5 % (30.3-42.9); Hemoglobin 9.3 gm/dl (10.1-14.3)
[2022-04-04] MEDS: QUEtiapine 25 MG TAB PO SCH (22:07)
[2022-04-05] MEDS: cefTRIAXone/NS 2 GM/100 ML 2 GM/100 ML BAG IV SCH (06:02)
[2022-04-05 06:37] LABS: Mean Corpuscular HGB Conc 29 % (30-34); Platelet Count 607 K/mm3 (140-440); Red Blood Count 4.49 M/mm3 (3.65-5.03)
[2022-04-05 06:40] LABS: Hematocrit 29.7 % (30.3-42.9); Hemoglobin 8.5 gm/dl (10.1-14.3); Mean Corpuscular Volume 66 fl (79-97); Red Cell Distribution Width 39.6 % (13.2-15.2)
[2022-04-05 07:35] LABS: Anisocytosis 3+; Eosinophils % (Manual) 0 % (0.0-4.3); Hypochromasia 2+; Platelet Estimate Consistent w Auto; Tear Drop Cells 1+; Total Cells Counted 100
[2022-04-05] MEDS: FAMOTIDINE 20 MG TAB PO SCH ×2 (10:19→21:46)
[2022-04-05] MEDS: SERTRALINE 25 MG TAB PO SCH (10:19)
--- NOTE | 2022-04-05 10:35 | Progress Note ---
Subjective - Reason for Consult Consult date: 04/05/22 Reason for consult: SI - Chief Complaint Chief complaint: The patient was seen today. She is quiet and withdrawn. She makes fair eye contact. Her affect is restricted. She still endorses depression and suicidal thoughts. The patient denies a plan today. Yesterday she said she wanted to cut her throat open. The patient states she slept good. Will continue to treat and recommend acute psychiatric inpatient treatment. REVIEW OF SYSTEMS Constitutional: Negative for weight loss ENT: Negative for stridor Respiratory: Negative for cough or hemoptysis All other systems reviewed and are negative MENTAL STATUS General Appearance and Behavior: age appropriate, calm, cooperative, withdrawn, fair eye contact, Psychomotor Behavior: within normal limits Mood: depressed Affect and affective range: congruent with stated mood, restricted Thought Process: goal directed Thought Content: optimistic Speech: Normal volume and Regular rate and rhythm Suicidal Ideation: Yes Homicidal Ideation: Denies HI Hallucinations: Denies Impulse Control: Limited Insight and Judgment: Limited Memory: Limited Attention: attentive Orientation: alert/oriented Diagnoses: Major Depressive Disorder Treatment Plan 1013 Seroquel 25mg po qhs Appreciate and agree with Zoloft 25mg po daily Sitter: Defer to primary Medical: per primary Disposition: recommend acute psychiatric inpatient treatment Will follow. Thanks Case staffed with Dr. Duncan Mental Status Exam - Vital signs Last Vital Signs Temp 97.4 F L 04/05/22 05:28 Pulse 72 04/05/22 05:28 Resp 16 04/05/22 05:28 BP 112/60 04/05/22 05:28 Pulse Ox 100 04/05/22 05:28
--- NOTE | 2022-04-05 11:51 | Progress Note ---
Assessment and Plan Assessment and plan: 23-year-old obese F Macedonian female with past medical history of anemia since childhood of unknown etiology presents emergency department complaining of a possible exacerbation of anemia versus pharyngitis. Having some increased fatigue as of late in conjunction with occasional chest discomfort which sp ontaneously resolved over the last few days. Reports no chest pain palpitations In the emergency room patient is found to have a hemoglobin of 6.1 and hematocrit 22.4 so we are going to admit the patient we are going to give 2 unit of packed red blood cells Hospital Course: Admitted for fatigue due to symptomatic anemia secondary to menorrhagia from mentrual cycles. chornically anemic. Patient given 2 units prbc. Follow up H/H pending. If hgb > 7.0 and vital signs remain stable, patient can be d/c home instructions to follow up outpatient with her primary care doctor, [employer] doctor, and a battery container finishing hand due to the chronicity of her anemia. Rx for augmentin will be provided on d/c for pharyngitis and iron supplementation for anemia. 04/05: Patient is awaiting inpatient psych bed due to reported suicidal ideation. She still feels the same way. In the meantime she tells me that her anemia and first transfusion happened at the age of 12. She unfortunately does not know if any work-up was done at that time but states that she does not follow with any physician at this time. She states that her menstrual cycle started at the age of 15. Considering her suicidal ideation and depression we will obtain a TSH for work Completion. Assessment and Plan: #Symptomatic Anemia #Microcytic Anemia - chronic anemia, heavy menses - Hgb: 6.1 - VSS - 2 unit rbc ordered - follow up recheck H/H -d/c home with iron supplementation #Chest pain - no acute complaints at the time of discharge. #Acute pharyngitis - currently on rocephin, change to augmentin on d/c. #Morbid Obesity - BMI 39.6 - Counseled patient on the importance of weight loss, incorporating exercise, and dietary changes (lean meats, fresh fruits and vegetables, and water intake). #Suicidal ideation with depression -Patient currently 1013 awaiting psych placement Patient expresses understanding. - Time: +15 min #Advance care planning Disease education conducted, care plan discussed, diagnoses discussed, prognosis discussed, patient is full code, patient acknowledges understanding and agree with care plan, +30 minutes. History Interval history: Patient seen and examined resting comfortably ambulating no acute distress. Reports no further chest pain Hospitalist Physical - Physical exam Narrative exam: VITAL SIGNS: Reviewed. GENERAL: The patient appears normally developed, Vital signs as documented. HEAD: No signs of head trauma. EYES: Pupils are equal. Extraocular motions intact. EARS: Hearing grossly intact. MOUTH: Oropharynx is normal. NECK: No adenopathy, no JVD. CHEST: Chest with clear breath sounds bilaterally. No wheezes, rales, or rhonchi. CARDIAC: Regular rate and rhythm. S1 and S2, without murmurs, gallops, or rubs. VASCULAR: No Edema. Peripheral pulses normal and equal in all extremities. ABDOMEN: Soft, non tender and non distended. No rebound or guarding, and no masses palpated. Bowel Sounds normal. MUSCULOSKELETAL: Good range of motion of all major joints. Extremities without clubbing, cyanosis or edema. NEUROLOGIC EXAM: Alert and oriented x 3 No focal sensory or strength deficits. Speech normal. Follows commands. PSYCHIATRIC: Mood normal. SKIN: detail exam as documented in skin assessment - Constitutional Vitals: Temp Pulse Resp BP Pulse Ox 97.4 F L 72 16 112/60 100 04/05/22 05:28 04/05/22 05:28 04/05/22 05:28 04/05/22 05:28 04/05/22 05:28 General appearance: Present: no acute distress, well-nourished Results - Labs CBC & Chem 7: 04/05/22 05:34 04/03/22 20:23 Labs: Laboratory Last Values WBC 3.5 K/mm3 (4.5-11.0) L 04/05/22 05:34 RBC 4.49 M/mm3 (3.65-5.03) 04/05/22 05:34 Hgb 8.5 gm/dl (10.1-14.3) L 04/05/22 05:34 Hct 29.7 % (30.3-42.9) L 04/05/22 05:34 MCV 66 fl (79-97) L 04/05/22 05:34 MCH 19 pg (28-32) L 04/05/22 05:34 MCHC 29 % (30-34) L 04/05/22 05:34 RDW 39.6 % (13.2-15.2) H 04/05/22 05:34 Plt Count 607 K/mm3 (140-440) H 04/05/22 05:34 Add Manual Diff Complete 04/05/22 05:34 Total Counted 100 04/05/22 05:34 Seg Neuts % (Manual) 71.0 % (40.0-70.0) H 04/05/22 05:34 Band Neutrophils % 1.0 % 04/05/22 05:34 Lymphocytes % (Manual) 19.0 % (13.4-35.0) 04/05/22 05:34 Reactive Lymphs % (Man) 2.0 % 04/05/22 05:34 Monocytes % (Manual) 6.0 % (0.0-7.3) 04/05/22 05:34 Eosinophils % (Manual) 0 % (0.0-4.3) 04/05/22 05:34 Basophils % (Manual) 1.0 % (0.0-1.8) 04/05/22 05:34 Metamyelocytes % 0 % 04/05/22 05:34 Myelocytes % 0 % 04/05/22 05:34 Promyelocytes % 0 % 04/05/22 05:34 Blast Cells % 0 % 04/05/22 05:34 Nucleated RBC % Not Reportable 04/05/22 05:34 Seg Neutrophils # Man 2.5 K/mm3 (1.8-7.7) 04/05/22 05:34 Band Neutrophils # 0.0 K/mm3 04/05/22 05:34 Lymphocytes # (Manual) 0.7 K/mm3 (1.2-5.4) L 04/05/22 05:34 Abs React Lymphs (Man) 0.1 K/mm3 04/05/22 05:34 Monocytes # (Manual) 0.2 K/mm3 (0.0-0.8) 04/05/22 05:34 Eosinophils # (Manual) 0.0 K/mm3 (0.0-0.4) 04/05/22 05:34 Basophils # (Manual) 0.0 K/mm3 (0.0-0.1) 04/05/22 05:34 Metamyelocytes # 0.0 K/mm3 04/05/22 05:34 Myelocytes # 0.0 K/mm3 04/05/22 05:34 Promyelocytes # 0.0 K/mm3 04/05/22 05:34 Blast Cells # 0.0 K/mm3 04/05/22 05:34 WBC Morphology Not Reportable 04/05/22 05:34 Hypersegmented Neuts Not Reportable 04/05/22 05:34 Hyposegmented Neuts Not Reportable 04/05/22 05:34 Hypogranular Neuts Not Reportable 04/05/22 05:34 Smudge Cells Not Reportable 04/05/22 05:34 Toxic Granulation Not Reportable 04/05/22 05:34 Toxic Vacuolation Not Reportable 04/05/22 05:34 Dohle Bodies Not Reportable 04/05/22 05:34 Pelger-Huet Anomaly Not Reportable 04/05/22 05:34 Kanu Rods Not Reportable 04/05/22 05:34 Platelet Estimate Consistent w auto 04/05/22 05:34 Clumped Platelets Not Reportable 04/05/22 05:34 Plt Clumps, EDTA Not Reportable 04/05/22 05:34 Large Platelets Not Reportable 04/05/22 05:34 Giant Platelets Not Reportable 04/05/22 05:34 Platelet Satelliting Not Reportable 04/05/22 05:34 Plt Morphology Comment Not Reportable 04/05/22 05:34 RBC Morphology Not Reportable 04/05/22 05:34 Dimorphic RBCs Not Reportable 04/05/22 05:34 Polychromasia Not Reportable 04/05/22 05:34 Hypochromasia 2+ 04/05/22 05:34 Poikilocytosis Not Reportable 04/05/22 05:34 Anisocytosis 3+ 04/05/22 05:34 Microcytosis Not Reportable 04/05/22 05:34 Macrocytosis Not Reportable 04/05/22 05:34 Spherocytes Not Reportable 04/05/22 05:34 Pappenheimer Bodies Not Reportable 04/05/22 05:34 Sickle Cells Not Reportable 04/05/22 05:34 Target Cells Not Reportable 04/05/22 05:34 Tear Drop Cells 1+ 04/05/22 05:34 Ovalocytes Not Reportable 04/05/22 05:34 Helmet Cells Not Reportable 04/05/22 05:34 Hammer-[place] Bodies Not Reportable 04/05/22 05:34 [place] Rings Not Reportable 04/05/22 05:34 Jose Francisco Cells Not Reportable 04/05/22 05:34 Bite Cells Not Reportable 04/05/22 05:34 Crenated Cell Not Reportable 04/05/22 05:34 Elliptocytes Few 04/05/22 05:34 Acanthocytes (Spur) Not Reportable 04/05/22 05:34 Rouleaux Not Reportable 04/05/22 05:34 Hemoglobin C Crystals Not Reportable 04/05/22 05:34 Schistocytes Not Reportable 04/05/22 05:34 Malaria parasites Not Reportable 04/05/22 05:34 Julio Bodies Not Reportable 04/05/22 05:34 Hem Pathologist Commnt No 04/05/22 05:34 Sodium 137 mmol/L (137-145) 04/03/22 20:23 Potassium 4.0 mmol/L (3.6-5.0) 04/03/22 20:23 Chloride 105.4 mmol/L (98-107) 04/03/22 20:23 Carbon Dioxide 23 mmol/L (22-30) 04/03/22 20:23 Anion Gap 13 mmol/L 04/03/22 20:23 BUN 9 mg/dL (7-17) 04/03/22 20:23 Creatinine 0.5 mg/dL (0.6-1.2) L 04/03/22 20:23 Estimated GFR > 60 ml/min 04/03/22 20:23 BUN/Creatinine Ratio 18 % 04/03/22 20:23 Glucose 90 mg/dL (65-100) 04/03/22 20:23 Calcium 8.9 mg/dL (8.4-10.2) 04/03/22 20:23 Total Bilirubin 0.50 mg/dL (0.1-1.2) 04/03/22 20:23 AST 18 units/L (5-40) 04/03/22 20:23 ALT 8 units/L (7-56) 04/03/22 20:23 Alkaline Phosphatase 53 units/L (35-129) 04/03/22 20:23 Total Protein 7.4 g/dL (6.3-8.2) 04/03/22 20:23 Albumin 4.8 g/dL (3.9-5) 04/03/22 20:23 Albumin/Globulin Ratio 1.8 % 04/03/22 20:23 Urine Color Straw (Yellow) 04/03/22 Unknown Urine Turbidity Clear (Clear) 04/03/22 Unknown Urine pH 5.0 (5.0-7.0) 04/03/22 Unknown Ur Specific [place] 1.015 (1.003-1.030) 04/03/22 Unknown Urine Protein <30 mg dl mg/dL (Negative) 04/03/22 Unknown Urine Glucose (UA) Negative mg/dL (Negative) 04/03/22 Unknown Urine Ketones Negative mg/dL (Negative) 04/03/22 Unknown Urine Blood Negative (Negative) 04/03/22 Unknown Urine Nitrite Negative (Negative) 04/03/22 Unknown Ur Reducing Substances Not Reportable 04/03/22 Unknown Urine Bilirubin Negative (Negative) 04/03/22 Unknown Urine Ictotest Not Reportable 04/03/22 Unknown Urine Urobilinogen < 2.0 mg/dL (<2.0) 04/03/22 Unknown Ur Leukocyte Esterase Trace (Negative) 04/03/22 Unknown Urine WBC (Auto) 13.0 /HPF (0.0-6.0) H 04/03/22 Unknown Urine RBC (Auto) 3.0 /HPF (0.0-6.0) 04/03/22 Unknown U Epithel Cells (Auto) 7.0 /HPF (0-13.0) 04/03/22 Unknown Urine Mucus Few /HPF 04/03/22 Unknown Blood Type O POSITIVE 04/04/22 03:35 Antibody Screen Negative 04/04/22 03:35 Crossmatch See Detail 04/04/22 03:35 Microbiology: Microbiology 04/03/22 Unknown Urine,Clean Catch Urine Culture - Preliminary Gram Negative Osbaldo Rollins/IV: Voiding Method Toilet Active Medications - Current Medications Current Medications: Generic Name Dose Route Start Last Admin Trade Name Freq PRN Reason Stop Dose Admin Acetaminophen 650 mg 04/04/22 05:10 Acetaminophen 325 Mg Tab PO Q4H PRN Pain MILD(1-3)/Fever >100.5/COOPER Albuterol 2.5 mg 04/04/22 05:10 Albuterol 2.5 Mg/3 Ml Nebu IH Q3HRT PRN Shortness Of Breath Famotidine 20 mg 04/04/22 10:00 04/05/22 10:19 Famotidine 20 Mg Tab PO 20 mg BID ARUN Administration Ceftriaxone Sodium 2 gm in 100 mls @ 200 mls/hr 04/04/22 06:00 04/05/22 06:02 Rocephin/Ns 2 Gm/100 Ml IV 200 mls/hr Q24H ARUN Administration Protocol Morphine Sulfate 2 mg 04/04/22 05:10 Morphine 2 Mg/1 Ml Inj IV Q4H PRN Pain, Moderate (4-6) Morphine Sulfate 4 mg 04/04/22 05:10 Morphine 4 Mg/1 Ml Inj IV Q4H PRN Pain , Severe (7-10) Ondansetron HCl 4 mg 04/04/22 05:10 Ondansetron 4 Mg/2 Ml Inj IV Q8H PRN Nausea And Vomiting Quetiapine Fumarate 25 mg 04/04/22 22:00 04/04/22 22:07 Quetiapine 25 Mg Tab PO 25 mg QHS ARUN Administration Sertraline HCl 25 mg 04/04/22 14:00 04/05/22 10:19 Sertraline 25 Mg Tab PO 25 mg QDAY ARUN Administration Sodium Chloride 10 ml 04/04/22 10:00 04/05/22 10:19 Sodium Chloride 0.9% 10 Ml Flush Syringe IV 10 ml BID ARUN Administration Sodium Chloride 10 ml 04/04/22 05:10 Sodium Chloride 0.9% 10 Ml Flush Syringe IV PRN PRN LINE FLUSH
[2022-04-05] MEDS: QUEtiapine 25 MG TAB PO SCH (21:46)
[2022-04-06 05:11] LABS: Mean Corpuscular HGB Conc 29 % (30-34); Platelet Count 515 K/mm3 (140-440); Red Blood Count 4.44 M/mm3 (3.65-5.03)
[2022-04-06 05:20] LABS: Hematocrit 29.1 % (30.3-42.9); Hemoglobin 8.3 gm/dl (10.1-14.3); Mean Corpuscular Volume 65 fl (79-97); Red Cell Distribution Width 40.1 % (13.2-15.2)
[2022-04-06] MEDS: cefTRIAXone/NS 2 GM/100 ML 2 GM/100 ML BAG IV SCH (06:22)
[2022-04-06] MEDS: SERTRALINE 25 MG TAB PO SCH (10:05)
[2022-04-06] MEDS: FAMOTIDINE 20 MG TAB PO SCH (10:05)
--- NOTE | 2022-04-06 10:51 | Progress Note ---
Assessment and Plan Assessment and plan: 23-year-old obese F Tanzanian female with past medical history of anemia since childhood of unknown etiology presents emergency department complaining of a possible exacerbation of anemia versus pharyngitis. Having some increased fatigue as of late in conjunction with occasional chest discomfort which sp ontaneously resolved over the last few days. Reports no chest pain palpitations In the emergency room patient is found to have a hemoglobin of 6.1 and hematocrit 22.4 so we are going to admit the patient we are going to give 2 unit of packed red blood cells Hospital Course: Admitted for fatigue due to symptomatic anemia secondary to menorrhagia from mentrual cycles. chornically anemic. Patient given 2 units prbc. Follow up H/H pending. If hgb > 7.0 and vital signs remain stable, patient can be d/c home instructions to follow up outpatient with her primary care doctor, VISITOR USE ASSISTANT doctor, and a digital strategy director due to the chronicity of her anemia. Rx for augmentin will be provided on d/c for pharyngitis and iron supplementation for anemia. 04/05: Patient is awaiting inpatient psych bed due to reported suicidal ideation. She still feels the same way. In the meantime she tells me that her anemia and first transfusion happened at the age of 12. She unfortunately does not know if any work-up was done at that time but states that she does not follow with any physician at this time. She states that her menstrual cycle started at the age of 15. Considering her suicidal ideation and depression we will obtain a TSH for work Completion. 04/06: Patient seen and examined, no new complaints, awaiting psych placement, still not confident about being discharge home. Assessment and Plan: #Symptomatic Anemia #Microcytic Anemia - chronic anemia, heavy menses - Hgb: 6.1 - VSS - 2 unit rbc ordered - follow up recheck H/H -d/c home with iron supplementation #Chest pain - no acute complaints at the time of discharge. #Acute pharyngitis - currently on rocephin, change to augmentin on d/c. #Morbid Obesity - BMI 39.6 - Counseled patient on the importance of weight loss, incorporating exercise, and dietary changes (lean meats, fresh fruits and vegetables, and water intake). #Suicidal ideation with depression -Patient currently 1013 awaiting psych placement Patient expresses understanding. - Time: +15 min #Advance care planning Disease education conducted, care plan discussed, diagnoses discussed, prognosis discussed, patient is full code, patient acknowledges understanding and agree with care plan, +30 minutes. History Interval history: Patient seen and examined resting comfortably ambulating no acute distress. Reports no further chest pain Hospitalist Physical - Physical exam Narrative exam: VITAL SIGNS: Reviewed. GENERAL: The patient appears normally developed, Vital signs as documented. HEAD: No signs of head trauma. EYES: Pupils are equal. Extraocular motions intact. EARS: Hearing grossly intact. MOUTH: Oropharynx is normal. NECK: No adenopathy, no JVD. CHEST: Chest with clear breath sounds bilaterally. No wheezes, rales, or rhonchi. CARDIAC: Regular rate and rhythm. S1 and S2, without murmurs, gallops, or rubs. VASCULAR: No Edema. Peripheral pulses normal and equal in all extremities. ABDOMEN: Soft, non tender and non distended. No rebound or guarding, and no masses palpated. Bowel Sounds normal. MUSCULOSKELETAL: Good range of motion of all major joints. Extremities without clubbing, cyanosis or edema. NEUROLOGIC EXAM: Alert and oriented x 3 No focal sensory or strength deficits. Speech normal. Follows commands. PSYCHIATRIC: Mood normal. SKIN: detail exam as documented in skin assessment - Constitutional Vitals: Temp Pulse Resp BP Pulse Ox 98.6 F 84 16 107/61 98 04/06/22 04:18 04/06/22 04:18 04/06/22 04:18 04/06/22 04:18 04/06/22 04:18 General appearance: Present: no acute distress, well-nourished Results - Labs CBC & Chem 7: 04/06/22 04:35 04/03/22 20:23 Labs: Laboratory Last Values WBC 3.2 K/mm3 (4.5-11.0) L 04/06/22 04:35 RBC 4.44 M/mm3 (3.65-5.03) 04/06/22 04:35 Hgb 8.3 gm/dl (10.1-14.3) L 04/06/22 04:35 Hct 29.1 % (30.3-42.9) L 04/06/22 04:35 MCV 65 fl (79-97) L 04/06/22 04:35 MCH 19 pg (28-32) L 04/06/22 04:35 MCHC 29 % (30-34) L 04/06/22 04:35 RDW 40.1 % (13.2-15.2) H 04/06/22 04:35 Plt Count 515 K/mm3 (140-440) H 04/06/22 04:35 Add Manual Diff Complete 04/05/22 05:34 Total Counted 100 04/05/22 05:34 Seg Neuts % (Manual) 71.0 % (40.0-70.0) H 04/05/22 05:34 Band Neutrophils % 1.0 % 04/05/22 05:34 Lymphocytes % (Manual) 19.0 % (13.4-35.0) 04/05/22 05:34 Reactive Lymphs % (Man) 2.0 % 04/05/22 05:34 Monocytes % (Manual) 6.0 % (0.0-7.3) 04/05/22 05:34 Eosinophils % (Manual) 0 % (0.0-4.3) 04/05/22 05:34 Basophils % (Manual) 1.0 % (0.0-1.8) 04/05/22 05:34 Metamyelocytes % 0 % 04/05/22 05:34 Myelocytes % 0 % 04/05/22 05:34 Promyelocytes % 0 % 04/05/22 05:34 Blast Cells % 0 % 04/05/22 05:34 Nucleated RBC % Not Reportable 04/05/22 05:34 Seg Neutrophils # Man 2.5 K/mm3 (1.8-7.7) 04/05/22 05:34 Band Neutrophils # 0.0 K/mm3 04/05/22 05:34 Lymphocytes # (Manual) 0.7 K/mm3 (1.2-5.4) L 04/05/22 05:34 Abs React Lymphs (Man) 0.1 K/mm3 04/05/22 05:34 Monocytes # (Manual) 0.2 K/mm3 (0.0-0.8) 04/05/22 05:34 Eosinophils # (Manual) 0.0 K/mm3 (0.0-0.4) 04/05/22 05:34 Basophils # (Manual) 0.0 K/mm3 (0.0-0.1) 04/05/22 05:34 Metamyelocytes # 0.0 K/mm3 04/05/22 05:34 Myelocytes # 0.0 K/mm3 04/05/22 05:34 Promyelocytes # 0.0 K/mm3 04/05/22 05:34 Blast Cells # 0.0 K/mm3 04/05/22 05:34 WBC Morphology Not Reportable 04/05/22 05:34 Hypersegmented Neuts Not Reportable 04/05/22 05:34 Hyposegmented Neuts Not Reportable 04/05/22 05:34 Hypogranular Neuts Not Reportable 04/05/22 05:34 Smudge Cells Not Reportable 04/05/22 05:34 Toxic Granulation Not Reportable 04/05/22 05:34 Toxic Vacuolation Not Reportable 04/05/22 05:34 Dohle Bodies Not Reportable 04/05/22 05:34 Pelger-Huet Anomaly Not Reportable 04/05/22 05:34 Kanu Rods Not Reportable 04/05/22 05:34 Platelet Estimate Consistent w auto 04/05/22 05:34 Clumped Platelets Not Reportable 04/05/22 05:34 Plt Clumps, EDTA Not Reportable 04/05/22 05:34 Large Platelets Not Reportable 04/05/22 05:34 Giant Platelets Not Reportable 04/05/22 05:34 Platelet Satelliting Not Reportable 04/05/22 05:34 Plt Morphology Comment Not Reportable 04/05/22 05:34 RBC Morphology Not Reportable 04/05/22 05:34 Dimorphic RBCs Not Reportable 04/05/22 05:34 Polychromasia Not Reportable 04/05/22 05:34 Hypochromasia 2+ 04/05/22 05:34 Poikilocytosis Not Reportable 04/05/22 05:34 Anisocytosis 3+ 04/05/22 05:34 Microcytosis Not Reportable 04/05/22 05:34 Macrocytosis Not Reportable 04/05/22 05:34 Spherocytes Not Reportable 04/05/22 05:34 Pappenheimer Bodies Not Reportable 04/05/22 05:34 Sickle Cells Not Reportable 04/05/22 05:34 Target Cells Not Reportable 04/05/22 05:34 Tear Drop Cells 1+ 04/05/22 05:34 Ovalocytes Not Reportable 04/05/22 05:34 Helmet Cells Not Reportable 04/05/22 05:34 [place] Bodies Not Reportable 04/05/22 05:34 [place] Rings Not Reportable 04/05/22 05:34 Anton Cells Not Reportable 04/05/22 05:34 Bite Cells Not Reportable 04/05/22 05:34 Crenated Cell Not Reportable 04/05/22 05:34 Elliptocytes Few 04/05/22 05:34 Acanthocytes (Spur) Not Reportable 04/05/22 05:34 Rouleaux Not Reportable 04/05/22 05:34 Hemoglobin C Crystals Not Reportable 04/05/22 05:34 Schistocytes Not Reportable 04/05/22 05:34 Malaria parasites Not Reportable 04/05/22 05:34 Julio Bodies Not Reportable 04/05/22 05:34 Hem Pathologist Commnt No 04/05/22 05:34 Sodium 137 mmol/L (137-145) 04/03/22 20:23 Potassium 4.0 mmol/L (3.6-5.0) 04/03/22 20:23 Chloride 105.4 mmol/L (98-107) 04/03/22 20:23 Carbon Dioxide 23 mmol/L (22-30) 04/03/22 20:23 Anion Gap 13 mmol/L 04/03/22 20:23 BUN 9 mg/dL (7-17) 04/03/22 20:23 Creatinine 0.5 mg/dL (0.6-1.2) L 04/03/22 20:23 Estimated GFR > 60 ml/min 04/03/22 20:23 BUN/Creatinine Ratio 18 % 04/03/22 20:23 Glucose 90 mg/dL (65-100) 04/03/22 20:23 Calcium 8.9 mg/dL (8.4-10.2) 04/03/22 20:23 Total Bilirubin 0.50 mg/dL (0.1-1.2) 04/03/22 20:23 AST 18 units/L (5-40) 04/03/22 20:23 ALT 8 units/L (7-56) 04/03/22 20:23 Alkaline Phosphatase 53 units/L (35-129) 04/03/22 20:23 Total Protein 7.4 g/dL (6.3-8.2) 04/03/22 20:23 Albumin 4.8 g/dL (3.9-5) 04/03/22 20:23 Albumin/Globulin Ratio 1.8 % 04/03/22 20:23 TSH 0.941 mlU/mL (0.270-4.200) 04/05/22 10:29 Urine Color Straw (Yellow) 04/03/22 Unknown Urine Turbidity Clear (Clear) 04/03/22 Unknown Urine pH 5.0 (5.0-7.0) 04/03/22 Unknown Ur Specific [place] 1.015 (1.003-1.030) 04/03/22 Unknown Urine Protein <30 mg dl mg/dL (Negative) 04/03/22 Unknown Urine Glucose (UA) Negative mg/dL (Negative) 04/03/22 Unknown Urine Ketones Negative mg/dL (Negative) 04/03/22 Unknown Urine Blood Negative (Negative) 04/03/22 Unknown Urine Nitrite Negative (Negative) 04/03/22 Unknown Ur Reducing Substances Not Reportable 04/03/22 Unknown Urine Bilirubin Negative (Negative) 04/03/22 Unknown Urine Ictotest Not Reportable 04/03/22 Unknown Urine Urobilinogen < 2.0 mg/dL (<2.0) 04/03/22 Unknown Ur Leukocyte Esterase Trace (Negative) 04/03/22 Unknown Urine WBC (Auto) 13.0 /HPF (0.0-6.0) H 04/03/22 Unknown Urine RBC (Auto) 3.0 /HPF (0.0-6.0) 04/03/22 Unknown U Epithel Cells (Auto) 7.0 /HPF (0-13.0) 04/03/22 Unknown Urine Mucus Few /HPF 04/03/22 Unknown Blood Type O POSITIVE 04/04/22 03:35 Antibody Screen Negative 04/04/22 03:35 Crossmatch See Detail 04/04/22 03:35 Microbiology: Microbiology 04/03/22 Unknown Urine,Clean Catch Urine Culture - Final Escherichia Coli Rollins/IV: Voiding Method Toilet Active Medications - Current Medications Current Medications: Generic Name Dose Route Start Last Admin Trade Name Freq PRN Reason Stop Dose Admin Acetaminophen 650 mg 04/04/22 05:10 Acetaminophen 325 Mg Tab PO Q4H PRN Pain MILD(1-3)/Fever >100.5/COOPER Albuterol 2.5 mg 04/04/22 05:10 Albuterol 2.5 Mg/3 Ml Nebu IH Q3HRT PRN Shortness Of Breath Famotidine 20 mg 04/04/22 10:00 04/06/22 10:05 Famotidine 20 Mg Tab PO 20 mg BID ARUN Administration Ceftriaxone Sodium 2 gm in 100 mls @ 200 mls/hr 04/04/22 06:00 04/06/22 06:22 Rocephin/Ns 2 Gm/100 Ml IV 04/07/22 23:59 200 mls/hr Q24H ARUN Administration Protocol Morphine Sulfate 2 mg 04/04/22 05:10 Morphine 2 Mg/1 Ml Inj IV Q4H PRN Pain, Moderate (4-6) Morphine Sulfate 4 mg 04/04/22 05:10 Morphine 4 Mg/1 Ml Inj IV Q4H PRN Pain , Severe (7-10) Ondansetron HCl 4 mg 04/04/22 05:10 Ondansetron 4 Mg/2 Ml Inj IV Q8H PRN Nausea And Vomiting Quetiapine Fumarate 25 mg 04/04/22 22:00 04/05/22 21:46 Quetiapine 25 Mg Tab PO 25 mg QHS ARUN Administration Sertraline HCl 25 mg 04/04/22 14:00 04/06/22 10:05 Sertraline 25 Mg Tab PO 25 mg QDAY AURN Administration Sodium Chloride 10 ml 04/04/22 10:00 04/06/22 10:06 Sodium Chloride 0.9% 10 Ml Flush Syringe IV 10 ml BID ARUN Administration Sodium Chloride 10 ml 04/04/22 05:10 Sodium Chloride 0.9% 10 Ml Flush Syringe IV PRN PRN LINE FLUSH
[2022-04-06 11:19] VITALS: BP 113/53
--- NOTE | 2022-04-06 12:13 | Progress Note ---
Subjective - Reason for Consult Consult date: 04/06/22 Reason for consult: SI - Chief Complaint Chief complaint: The patient was seen today. She is smiling and appears in a better mood. She says she got back with her boyfriend. The patient then says "well the meds are working." She says she slept well after the nurse turned on the light. The patient says she has always been afraid of the dark and sometimes sees things. She denies SI/HI. She says "I'm going to keep taking my meds to feel better." She denies hallucinations at present. REVIEW OF SYSTEMS Constitutional: Negative for weight loss ENT: Negative for stridor Respiratory: Negative for cough or hemoptysis All other systems reviewed and are negative MENTAL STATUS General Appearance and Behavior: age appropriate, calm, cooperative, polite Psychomotor Behavior: within normal limits Mood: better Affect and affective range: congruent with stated mood Thought Process: goal directed Thought Content: optimistic Speech: Normal volume and Regular rate and rhythm Suicidal Ideation: Denies Homicidal Ideation: Denies HI Hallucinations: Denies Impulse Control: Limited Insight and Judgment: Limited Memory: Limited Attention: attentive Orientation: alert/oriented Diagnoses: Major Depressive Disorder Treatment Plan d/c 1013 Seroquel 25mg po qhs Zoloft 25mg po daily Sitter: Defer to primary Medical: per primary Disposition: Do not recommend acute psychiatric inpatient treatment. The patient understands that if SI/HI arise or any fear of endangerment she is to seek immediate assistance. The county tax assessor to further discuss safety plan and give the patient all necessary outpatient resources The patient to follow up with outpatient psych in 7 to 14 days upon discharge Will sign off. Thanks Case staffed with Dr. Duncan Mental Status Exam - Vital signs Last Vital Signs Temp 98.4 F 04/06/22 11:15 Pulse 74 04/06/22 11:15 Resp 22 04/06/22 11:15 BP 113/53 04/06/22 11:15 Pulse Ox 97 04/06/22 11:15
--- NOTE | 2022-04-06 13:51 | Discharge Summary ---
Providers - Providers Date of Admission: 04/04/22 05:10 Attending physician: CARMEN JACKSON MD 04/04/22 12:48 Consult to Mental Health [CONS] Routine Reason For Exam: suicidal ideation with plan Primary care physician: NADEEN DALTON MD Hospitalization Reason for admission: chest pain Condition: Stable Hospital course: 23-year-old obese F [place] female with past medical history of anemia since childhood of unknown etiology presents emergency department complaining of a possible exacerbation of anemia versus pharyngitis. Having some increased fatigue as of late in conjunction with occasional chest discomfort which spontaneously resolved over the last few days. Reports no chest pain palpitations In the emergency room patient is found to have a hemoglobin of 6.1 and hematocrit 22.4 so we are going to admit the patient we are going to give 2 unit of packed red blood cells Hospital Course: Admitted for fatigue due to symptomatic anemia secondary to menorrhagia from mentrual cycles. chornically anemic. Patient given 2 units prbc. Follow up H/H pending. If hgb > 7.0 and vital signs remain stable, patient can be d/c home instructions to follow up outpatient with her primary care doctor, SET DESIGNER doctor, and a chin strap maker due to the chronicity of her anemia. Rx for augmentin will be provided on d/c for pharyngitis and iron supplementation for anemia. 04/05: Patient is awaiting inpatient psych bed due to reported suicidal ideation. She still feels the same way. In the meantime she tells me that her anemia and first transfusion happened at the age of 12. She unfortunately does not know if any work-up was done at that time but states that she does not follow with any physician at this time. She states that her menstrual cycle started at the age of 15. Considering her suicidal ideation and depression we will obtain a TSH for work Completion. 04/06: Patient seen and examined, no new complaints, awaiting psych placement, patient on re-evlaution by psych was cleared for discharge home adn 1013 recended. Assessment and Plan: #Symptomatic Anemia #Microcytic Anemia - chronic anemia, heavy menses - Hgb: 6.1 - VSS - 2 unit rbc ordered - follow up recheck H/H -d/c home with iron supplementation #Chest pain - no acute complaints at the time of discharge. #Acute pharyngitis - currently on rocephin, change to augmentin on d/c. #Morbid Obesity - BMI 39.6 - Counseled patient on the importance of weight loss, incorporating exercise, and dietary changes (lean meats, fresh fruits and vegetables, and water intake). #Suicidal ideation with depression -Patient currently 1013 awaiting psych placement Patient expresses understanding. - Time: +15 min #Advance care planning Disease education conducted, care plan discussed, diagnoses discussed, prognosis discussed, patient is full code, patient acknowledges understanding and agree with care plan, +30 minutes. Disposition: 01 HOME / SELF CARE / HOMELESS Final Discharge Diagnosis (Prints w/discharge instructions): #Symptomatic Anemia. #Microcytic Anemia. #Chest pain Time spent for discharge: 35 mins Core Measure Documentation - Palliative Care Palliative Care/ Comfort Measures: Not Applicable - Core Measures Any of the following diagnoses?: none Exam - Physical Exam Narrative exam: VITAL SIGNS: Reviewed. GENERAL: The patient appears normally developed, Vital signs as documented. HEAD: No signs of head trauma. EYES: Pupils are equal. Extraocular motions intact. EARS: Hearing grossly intact. MOUTH: Oropharynx is normal. NECK: No adenopathy, no JVD. CHEST: Chest with clear breath sounds bilaterally. No wheezes, rales, or rhonchi. CARDIAC: Regular rate and rhythm. S1 and S2, without murmurs, gallops, or rubs. VASCULAR: No Edema. Peripheral pulses normal and equal in all extremities. ABDOMEN: Soft, non tender and non distended. No rebound or guarding, and no masses palpated. Bowel Sounds normal. MUSCULOSKELETAL: Good range of motion of all major joints. Extremities without clubbing, cyanosis or edema. NEUROLOGIC EXAM: Alert and oriented x 3 No focal sensory or strength deficits. Speech normal. Follows commands. PSYCHIATRIC: Mood normal. SKIN: detail exam as documented in skin assessment - Constitutional Vitals: Temp Pulse Resp BP Pulse Ox 98.4 F 74 22 113/53 97 04/06/22 11:15 04/06/22 11:15 04/06/22 11:15 04/06/22 11:15 04/06/22 11:15 Plan Activity: advance as tolerated, fall precautions Diet: low fat Special Instructions: record daily weights, record daily BP diary Follow up with: BAM CALVERT MD [Staff Physician] - 3-5 Days ANNABEL HAYNES MD [Staff Physician] - 7 Days Prescriptions: QUEtiapine [SEROquel] 25 mg PO QHS #30 tablet Amoxicillin/K Clav Tab [Augmentin 875 mg] 1 tab PO Q12HR 5 Days #10 tab Ferrous Sulfate [Feosol 325 MG tab] 325 mg PO BID 30 Days #60 tablet Sertraline [Zoloft] 25 mg PO QDAY #30 tab
== END 2022-04-06 15:50 | disposition home or self-care (01) | DRG 760 ==
LOC: ED 16:55 → 3A 04-04 05:10
PROVIDERS: ADMIT Hospitalist; ATTEND Internal Medicine
PROC: 30233N1 Transfusion of Nonautologous Red Blood Cells into Peripheral Vein, Percutaneous Approach (ICD-10-PCS; principal; 2022-04-04)
DX: N92.0 Excessive and frequent menstruation with regular cycle (principal); R45.851 Suicidal ideations; R07.9 Chest pain, unspecified; J02.9 Acute pharyngitis, unspecified; Z68.39 Body mass index [BMI] 39.0-39.9, adult; D50.9 Iron deficiency anemia, unspecified; E66.01 Morbid (severe) obesity due to excess calories; Z71.3 Dietary counseling and surveillance; F32.9 Major depressive disorder, single episode, unspecified; Z82.49 Family history of ischemic heart disease and other diseases of the circulatory system
CPT/HCPCS: 36415; 71046; 80053; 81001; 84443; 85007; 85014; 85018; 85025; 85027; 86850; 86900; 86901; 86920; 87076; 87086; 87186; 93005; G0378; J0696; J7040; P9016